=== PATIENT | male | born 1970 | race Caucasian/White ===

== ENCOUNTER 2021-06-20 20:57 | Inpatient (IN) | payer MEDICAID ==
[~2021-06-20] VITALS: Ht 175.3 cm; Wt 118.8 kg
--- NOTE | 2021-06-20 21:00 | NUR ---
ARTURO [address] C/O R SIDED WEAKNESS. LKWT 2015. PT A/OX4. TOLERATING R/A WELL WITH NO SOB. POST ANESTHESIA ROOM NURSE R HAND #20G S/L.
--- NOTE | 2021-06-20 21:04 | NUR ---
RENEE RAMSEY 138; DR. OCASIO AWARE
--- NOTE | 2021-06-20 21:05 | NUR ---
CODE STOKE ACTIVATED
--- NOTE | 2021-06-20 21:07 | NUR ---
TELEMED REQUEST SENT.
--- NOTE | 2021-06-20 21:09 | NUR ---
PT TAKEN TO CT VIA LACHELLE
[2021-06-20] MEDS ORDERED: IV NS 0.9% 250 ML IV ONE (21:13)
[2021-06-20] MEDS ORDERED: IOHEXOL-350 100 ML VIAL IV ONE (21:13)
--- NOTE | 2021-06-20 21:30 | NUR ---
IV CANNULA G18 INSERTED ON LEFT FOREARM. BLOOD DRAWN AND GIVEN TO REJECTOR.
[2021-06-20 21:33] LABS: BASOPHILS % (AUTO) 0.4 % (0.0-2.0); EOSINOPHILS % (AUTO) 2.3 % (0.0-6.0); HEMATOCRIT 37 % (39-51); HEMOGLOBIN 12.4 g/dL (13.5-17.5); LYMPHOCYTES # (AUTO) 0.8 K/uL (0.8-4.8); LYMPHOCYTES % (AUTO) 7.3 % (20.0-44.0); MEAN CORPUSCULAR HGB CONC 34 g/dl (31.0-36.0); MEAN CORPUSCULAR VOLUME 90 fL (80-96); MONOCYTES # (AUTO) 0.9 K/uL (0.1-1.30); MONOCYTES % (AUTO) 8.5 % (2.0-12.0); NEUTROPHILS # (AUTO) 8.9 K/uL (1.8-8.9); NEUTROPHILS % (AUTO) 81.5 % (43.0-81.0); PLATELET COUNT (AUTO) 168 K/uL (150-450); RED BLOOD CELL COUNT(AUTO) 4.08 MIL/uL (4.5-6.0); WHITE BLOOD COUNT (AUTO) 10.9 K/uL (4.3-11.0)
--- NOTE | 2021-06-20 21:35 | NUR ---
CT SCAN AND CXR DONE AT RADIOLOGY ROOM
[2021-06-20 21:38] LABS: CALCIUM, SERUM 7.5 mg/dL (8.5-10.1); CARBON DIOXIDE 21 mmol/L (21-32); CHLORIDE 109 mmol/L (98-107); CREATININE 0.9 mg/dL (0.6-1.3); GLUCOSE 120 mg/dL (74-106); POTASSIUM 3.3 mmol/L (3.5-5.1); SODIUM SERUM 138 mmol/L (136-145); UREA NITROGEN, BLOOD 13 mg/dL (7-18)
--- NOTE | 2021-06-20 21:40 | NUR ---
EKG DONE AT BEDSIDE.
--- NOTE | 2021-06-20 21:40 | NUR ---
COVID SWAB DONE AND GIVEN TO SPRAY GUN OPERATOR
--- NOTE | 2021-06-20 21:43 | NUR ---
TELEVIDEO DONE WITH NEUROLOGIST.
--- NOTE | 2021-06-20 21:45 | NUR ---
NEUROLOGIST DR SAAVEDRA INSTRUCTED NO TO TPA
--- NOTE | 2021-06-20 21:54 | NUR ---
MOVE SHEET SUBMITTED.
[2021-06-20] MEDS ORDERED: CEFEPIME 1 GM in IV D5W 50 ML IV ONE (22:00)
[2021-06-20] MEDS ORDERED: CEFEPIME 1 GM VIAL ONE (22:15)
--- NOTE | 2021-06-20 22:25 | NUR ---
IV ANTIBIOTIC STARTED
--- NOTE | 2021-06-20 22:49 | NUR ---
ASSIGNED TO 314-2
--- NOTE | 2021-06-20 22:58 | NUR ---
REPORT GIVEN TO MAL KING
--- NOTE | 2021-06-20 23:23 | NUR ---
PATIENT TRANSFERRED UNDER ACLS
--- NOTE | 2021-06-20 23:30 | NUR ---
TELE/PROTECTIVE SIGNAL REPAIRER NOTE 8650 RECEIVED PT FROM [facility]. VIA GURNEY TO [id number] ACCOMPANIED BY RN/STAFF. A/OX4. NO SOB. PT REPORTS HE GOT BITTEN BY A "BUG" YESTERDAY WHILE AT THE [employer]; TODAY CAME IN TO [facility]. D/T L-SIDED WEAKNESS. PT WITH LLE CELLULITIS. PT NOTED EASY TO ANGER AND ARGUMENTATIVE TOWARDS NURSES. SPOKE CALMLY TO PT, INFORMED OF ADMISSION PROCESS, HEALTH TEACHINGS, MEDS, ORDERS. PT REDIRECTED AND VERBALIZED UNDERSTANDING. PT C/O STOMACH UPSET AND NAUSEA. MEDS REQUESTED TO VARGAS MCLAIN, DR.SAM Stanton AWAITING ORDERS. IV SITE: L-FA #18G INTACT/PATENT/FLUSHES WELL. CONNECTED TO TELE MONITOR, READING SR, HR 91. MADE COMFORTABLE IN BED. SAFETY MEASURES IN PLACE, BED IN LOWEST LOCKED POSITION, S/R UPX2, CALL LIGHT WITHIN REACH. WILL CONT TO MONITOR.
[2021-06-20] MEDS ORDERED: VANCOMYCIN 1 GM in IV D5W 250ml IV ONE (23:45)
[2021-06-20 23:59] LABS: BASOPHILS # (AUTO) 0.1 K/uL (0.0-0.2); BASOPHILS % (AUTO) 0.6 % (0.0-2.0); EOSINOPHILS % (AUTO) 2.5 % (0.0-6.0); HEMATOCRIT 37 % (39-51); HEMOGLOBIN 12.5 g/dL (13.5-17.5); LYMPHOCYTES # (AUTO) 1.4 K/uL (0.8-4.8); LYMPHOCYTES % (AUTO) 12.6 % (20.0-44.0); MEAN CORPUSCULAR HGB CONC 34 g/dl (31.0-36.0); MEAN CORPUSCULAR VOLUME 89 fL (80-96); MONOCYTES # (AUTO) 0.8 K/uL (0.1-1.30); MONOCYTES % (AUTO) 7.7 % (2.0-12.0); NEUTROPHILS # (AUTO) 8.5 K/uL (1.8-8.9); NEUTROPHILS % (AUTO) 76.6 % (43.0-81.0); PLATELET COUNT (AUTO) 184 K/uL (150-450); RED BLOOD CELL COUNT(AUTO) 4.11 MIL/uL (4.5-6.0); WHITE BLOOD COUNT (AUTO) 11.1 K/uL (4.3-11.0)
[2021-06-21] MEDS ORDERED: VANCOMYCIN 1 GM VIAL ONE
[2021-06-21] MEDS ORDERED: ONDANSETRON HCL/PF 4 MG/2 ML VIAL IV PRN
--- NOTE | 2021-06-21 00:05 | NUR ---
RN NOTE RECEIVED ORDERS FOR ZOFRAN AND MAALOX PRN. NURSING SWALLOW SCREEN DONE AND PASSED BEFORE ADMINISTERING PO MEDS.
[2021-06-21] MEDS: ASPIRIN 81 MG TAB.CHEW PO SCH ×2 (00:11→09:04)
[2021-06-21 00:14] LABS: CALCIUM, SERUM 7.4 mg/dL (8.5-10.1); CREATININE 0.8 mg/dL (0.6-1.3)
[2021-06-21 00:26] LABS: ALBUMIN 2.8 g/dL (3.4-5.0); BILIRUBIN,TOTAL 0.4 mg/dL (0.2-1.0); TOTAL PROTEIN, SERUM 6.1 g/dL (6.4-8.2)
[2021-06-21 00:27] LABS: THYROID STIMULATING HORMONE 0.201 uIU/mL (0.358-3.74)
[2021-06-21] MEDS: MAG HYDROX/AL HYDROX/SIMETH 30 ML UDC PO PRN ×2 (00:33→10:29)
--- NOTE | 2021-06-21 01:00 | NUR ---
RN NOTE PT REPORTS RELIEF FROM NAUSEA AND STOMACH UPSET. PT REQUESTING SNACKS AND GIVEN PUDDING, MILK AND SANDWICH PER PT'S REQUEST.
[2021-06-21] MEDS: ACETAMINOPHEN 325 MG TABLET PO PRN ×2 (01:06→21:45)
[2021-06-21 01:49] VITALS: BP 134/70
[2021-06-21] MEDS ORDERED: DEXTROSE 50%-WATER 50 ML DISP.SYRIN IV PRN (02:00)
[2021-06-21] MEDS: BLOOD SUGAR DIAGNOSTIC 1 EACH STRIP IN SCH ×4 (06:16→21:29)
[2021-06-21 07:13] LABS: BASOPHILS % (AUTO) 0.4 % (0.0-2.0); EOSINOPHILS % (AUTO) 4.2 % (0.0-6.0); HEMATOCRIT 36 % (39-51); HEMOGLOBIN 12.2 g/dL (13.5-17.5); LYMPHOCYTES # (AUTO) 1.5 K/uL (0.8-4.8); MEAN CORPUSCULAR HGB CONC 34 g/dl (31.0-36.0); MEAN CORPUSCULAR VOLUME 90 fL (80-96); MONOCYTES # (AUTO) 0.7 K/uL (0.1-1.30); MONOCYTES % (AUTO) 8.9 % (2.0-12.0); NEUTROPHILS # (AUTO) 5.6 K/uL (1.8-8.9); NEUTROPHILS % (AUTO) 68.5 % (43.0-81.0); PLATELET COUNT (AUTO) 163 K/uL (150-450); RED BLOOD CELL COUNT(AUTO) 3.99 MIL/uL (4.5-6.0); WHITE BLOOD COUNT (AUTO) 8.1 K/uL (4.3-11.0)
[2021-06-21 07:22] LABS: CALCIUM, SERUM 7.8 mg/dL (8.5-10.1); CREATININE 0.8 mg/dL (0.6-1.3); POTASSIUM 3.2 mmol/L (3.5-5.1)
[2021-06-21] MEDS ORDERED: BLOOD SUGAR DIAGNOSTIC 1 EACH STRIP IN SCH (07:30)
--- NOTE | 2021-06-21 07:30 | NUR ---
BUS PERSON NOTES PT IN BED, AWAKE, ALERT AND ORIENTED, NO COMPLAINT OF PAIN AT THIS TIME, RESPIRATIONS NORMAL, CALL LIGHT WITHIN REACH, WITH REDNESS AND SWELLING TO LEFT LOWER LEG, NO DISCHARGE NOTED, NEEDS ATTENDED.
[2021-06-21] MEDS ORDERED: LISI10TA29 PO (07:45)
[2021-06-21] MEDS ORDERED: GABA600T12 PO (07:45)
[2021-06-21] MEDS ORDERED: AMLO-212 PO (07:45)
[2021-06-21] MEDS ORDERED: LEVE500T9 PO (07:45)
[2021-06-21 08:09] VITALS: BP 104/72
[2021-06-21] MEDS: VANCOMYCIN 1 GM in IV D5W 250ml IV SCH ×3 (09:05→23:39)
[2021-06-21] MEDS: PANTOPRAZOLE 40 MG TABLET.DR PO SCH (09:05)
[2021-06-21] MEDS ORDERED: POTASSIUM CHLORIDE 20 MEQ TAB.PRT.SR PO SCH (10:00)
[2021-06-21] MEDS: INSULIN REGULAR, HUMAN 100 UNIT/ML 3 ML VIAL SQ PRN ×2 (12:59→13:12)
--- NOTE | 2021-06-21 14:15 | NUR ---
SS Note: SS Consult requested for code Stroke. SW met with pt. at bedside. The pt. is alert & oriented x 4 and very drowsy. Pt. couldn't provide address or discuss discharge plan. Pt. stated "it was hard for him to think right now" and asked SW to return at a later time. SW will follow up.
[2021-06-21 15:34] VITALS: BP 119/72
[2021-06-21] MEDS: HYDROCODONE/APAP 10/325MG TABLET PO PRN (17:38)
--- NOTE | 2021-06-21 18:51 | NUR ---
RN MS NOTES PT IN BED, RESTING, PAIN MEDS GIVEN FOR LEFT LEG PAIN, ASSISTED TO BATHROOM VIA WHEELCHAIR NEEDED, SEEN BY DR. MARSH AND DR. SCHERER TODAY, PLAN OF CARE DISCUSSED WITH PT, VERBALIZED UNDERSTANDING, IV ATB GIVEN ORDERED, KEPT SORTER PRICER BED.
--- NOTE | 2021-06-21 19:44 | NUR ---
MS RN OPENING NOTES PATIENT IN RESTING IN BED COMFORTABLY; A/OX4, ABLE TO MAKE NEEDS KNOWN; BREATHING EVEN AND UNLABORED; NO SOB NOTED; PT DENIES PAIN; NO DISTRESS NOTED AT THIS TIME; TOLERATING ROOM AIR WELL; L SIDED WEAKNESS NOTED; PT HAS L FA #18G IV ACCESS NOTED; FLUSHING WELL; SAFETY PRECAUTIONS IMPLEMENTED, BED LOCKED IN LOW POSITION; SIDE RAILSX2; CALL LIGHT WITHIN REACH; WILL CONT TO MONITOR, WILL CONT PLAN OF CARE
[2021-06-21 19:55] VITALS: BP 131/56
--- NOTE | 2021-06-21 19:59 | NUR ---
MS RN NOTES ASSISTED PT TO RESTROOM, PT TOLERATED TRANSFERRING FROM BED TO WHEEL CHAIR; PT COMPLAINT OF GENERALIZED BODY PAINS BUT STILL MANAGEABLE; PT BACK IN BED AND COMFORTABLE, EATING SANDWICH AT THIS TIME; PT AGREED TO TAKE DUE MEDS AND WISHES TO SLEEP TONIGHT; IF PT SLEEPING, PER PT DO NOT BOTHER HE HAS NOT SLEPT WELL; WILL CONT TO MONITOR
[2021-06-21 20:00] VITALS: BP 131/56
[2021-06-21] MEDS: SIMVASTATIN 20 MG TABLET PO SCH (21:29)
--- NOTE | 2021-06-21 22:00 | NUR ---
MS RN NOTES PT ACCU CHECK 145; PATIENT DOES NOT WANT INSULIN COVERAGE BECAUSE HE IS NOT DIABETIC; PT INFORMED ON HOSPITAL PROTOCOL AND POSSIBLE REASONS TO WHY MD ORDERED ACCU CHECK AND INSULIN THROUGHOUT HOSPITALIZATION; PT STILL REFUSING, CHARGE AWARE
[2021-06-22] MEDS: HYDROCODONE/APAP 10/325MG TABLET PO PRN ×4 (01:10→21:23)
--- NOTE | 2021-06-22 04:30 | NUR ---
MS RN NOTES PT AWAKE, ASSISTED TO RESTROOM AND BACK IN BED COMFORTABLY; PT INFORMED OF MD ORDER FOR MRI OF BRAIN WITHOUT CONTRAST FOR FURTHER IMAGING TESTS D/T LEFT SIDED WEAKNESS; MRI QUESTIONNAIRE AND SURGICAL HX DISCUSSED WITH PT; PT SIGNED FORMS AND AGREED FOR MRI TO BE DONE IF MD ORDERED; DOCUMENTS IN PT BINDER
[2021-06-22] MEDS: BLOOD SUGAR DIAGNOSTIC 1 EACH STRIP IN SCH ×4 (06:34→21:40)
--- NOTE | 2021-06-22 06:43 | NUR ---
MS RN CLOSING NOTES PATIENT IN RESTING IN BED COMFORTABLY; A/OX4, VERBALIZED HE FEELS WELL RESTED; BREATHING EVEN AND UNLABORED; NO SOB NOTED; PT DENIES PAIN AT THIS TIME; NO DISTRESS NOTED AT THIS TIME; TOLERATING ROOM AIR WELL; SLIGHT L SIDED WEAKNESS STILL NOTED WITH MILD IMPROVEMENT; MRI OF BRAIN WITHOUT CONTRAST ORDERED PER MD; UNKNOWN TIME OF SCHEDULE; WILL INFORM DAY SHIFT, PT AWARE; PT HAS L FA #18G IV ACCESS NOTED; FLUSHING WELL; ALL NEEDS RENDERED; SAFETY PRECAUTIONS IMPLEMENTED, BED LOCKED IN LOW POSITION; SIDE RAILSX2; CALL LIGHT WITHIN REACH; WILL ENDORSE CONT OF CARE TO ONCOMING SHIFT
[2021-06-22 07:25] LABS: CALCIUM, SERUM 8.1 mg/dL (8.5-10.1); CREATININE 0.9 mg/dL (0.6-1.3); POTASSIUM 3.5 mmol/L (3.5-5.1)
--- NOTE | 2021-06-22 07:30 | NUR ---
RN MS NOTES PT IN BED, AWAKE, ALERT AND ORIENTED, NO COMPLAINT OF PAIN AT THIS TIME, RESPIRATIONS NORMAL, ABLE TO TRANSFER TO WHEELCHAIR TO THE BATHROOM, CALL LIGHT WITHIN REACH, NEEDS ATTENDED.
[2021-06-22 08:00] VITALS: BP 126/75
[2021-06-22] MEDS: PANTOPRAZOLE 40 MG TABLET.DR PO SCH (08:15)
[2021-06-22] MEDS: ASPIRIN 81 MG TAB.CHEW PO SCH (08:15)
[2021-06-22] MEDS: VANCOMYCIN 1 GM in IV D5W 250ml IV SCH ×3 (08:15→23:08)
[2021-06-22] MEDS ORDERED: LORAZEPAM 1 MG TABLET PO ONE (10:30)
--- NOTE | 2021-06-22 13:41 | NUR ---
SS Note: SW received consult for stroke. Pt. Is a 51-year-old male who demonstrates adequate insight to the reason for hospitalization. Per pt., he came in for a stroke and a bug bite. Pt. was oriented x3, alert, and cooperative. During interview, pt. was capable of following directions and appeared unkempt. Pt.s speech was at a normal rate and pt.s mood was elevated. Pt. reported no hx of mental health, substance abuse, suicidal ideation, or homicidal ideation. Pt. denies auditory hallucinations, visual hallucinations, paranoia, or delusions. SW explored pt.s living situation. Per pt., he lives alone [[address] [place] [id number]]. Pt. has no family out here, but states that his friends are supportive [[place] [phone]]. Pt. mentioned that he had a stroke last year [May of 2020], and this is his second time. He states that he feels weakness and numbness on his left side of the body. Pt. was dosing off during interview. Plan: SW provided available resources and pt. accepted. SW assess pt. with PHQ9 and pt. scored a 0. There is no need for a Psych consult. Upon discharge, per pt., he wants to return home. Resources Provided: Stroke Empowerment Packet.
[2021-06-22 16:00] VITALS: BP 120/76
--- NOTE | 2021-06-22 18:42 | NUR ---
RN MS NOTES PT IN BED, RESTING, PAIN MEDS GIVEN FOR PAIN MANAGEMENT, NOT IN DISTRESS, CALL LIGHT WITHIN REACH, PM MEDS GIVEN ORDERED, COMPLETED MRI, SEEN BY DR. SCHERER AND DR. MARSH TODAY, PLAN OF CARE DISCUSSED WITH PT, VERBALIZED UNDERSTANDING, ALL NEEDS ATTENDED.
--- NOTE | 2021-06-22 19:15 | NUR ---
MS RN OPENING NOTES RECEIVED PATIENT LAYING AWAKE IN BED. A/O X4. PATIENT WITH REGULAR AND UNLABORED BREATHING ON ROOM AIR, TOLERATED WELL. NO SIGNS AND SYMPTOMS OF DISTRESS NOTED AT THIS TIME. NO COMPLAINS OF PAIN OR DISCOMFORT AT THIS TIME. IV ACCESS LFA G #18 SL. IV ACCESS PATENT AND INTACT. SAFETY PRECAUTIONS ENFORCED WITH BED LOCKED AND AT LOWEST POSITION. CALL LIGHT WITHIN REACH AT ALL TIMES. WILL CONTINUE TO MONITOR PATIENT.
[2021-06-22 20:00] VITALS: BP 133/81
[2021-06-22] MEDS: SIMVASTATIN 20 MG TABLET PO SCH (21:23)
--- NOTE | 2021-06-22 21:24 | NUR ---
MS RN NOTES PATIENT COMPLAINED OF PAIN. ADMINISTERED NORCO ORDERED BY HOSPITALIST. WILL CONTINUE TO MONITOR PATIENT.
[2021-06-22] MEDS: INSULIN REGULAR, HUMAN 100 UNIT/ML 3 ML VIAL SQ PRN (21:41)
[2021-06-23] MEDS: HYDROCODONE/APAP 10/325MG TABLET PO PRN ×4 (03:34→23:22)
--- NOTE | 2021-06-23 03:35 | NUR ---
MS RN NOTES PATIENT COMPLAINED OF PAIN. ADMINISTERED NORCO ORDERED BY HOSPITALIST. WILL CONTINUE TO MONITOR PATIENT.
[2021-06-23 06:19] LABS: CALCIUM, SERUM 8.3 mg/dL (8.5-10.1); POTASSIUM 3.6 mmol/L (3.5-5.1)
[2021-06-23] MEDS: BLOOD SUGAR DIAGNOSTIC 1 EACH STRIP IN SCH ×4 (06:58→21:27)
--- NOTE | 2021-06-23 07:00 | NUR ---
MS RN OPENING NOTES PATIENT STILL LAYING AWAKE IN BED. A/O X4. PATIENT WITH REGULAR AND UNLABORED BREATHING ON ROOM AIR, TOLERATED WELL. NO SIGNS AND SYMPTOMS OF DISTRESS NOTED AT THIS TIME. NO COMPLAINS OF PAIN OR DISCOMFORT AT THIS TIME. IV ACCESS LFA G #18 SL. IV ACCESS PATENT AND INTACT. SAFETY PRECAUTIONS ENFORCED WITH BED LOCKED AND AT LOWEST POSITION. CALL LIGHT WITHIN REACH AT ALL TIMES. WILL ENDORSE CONTINUITY OF CARE TO DAY SHIFT NURSE. Addendum: 06/23/21 at 0704 by ANA DANGELO RN MS RN CLOSING NOTES
--- NOTE | 2021-06-23 07:30 | NUR ---
MS RN OPENING NOTES RECEIVED PATIENT LAYING AWAKE IN BED. A/O X4. PATIENT WITH REGULAR AND UNLABORED BREATHING ON ROOM AIR, TOLERATING WELL. NO S/SX OF DISTRESS NOTED AT THIS TIME. NO COMPLAINS OF PAIN OR DISCOMFORT AT THIS TIME. IV ACCESS LFA G #18 SL. IV ACCESS PATENT AND INTACT. SAFETY PRECAUTIONS ENFORCED WITH BED LOCKED AND AT LOWEST POSITION. CALL LIGHT WITHIN REACH AT ALL TIMES. WILL CONTINUE TO MONITOR PATIENT.
[2021-06-23] MEDS: PANTOPRAZOLE 40 MG TABLET.DR PO SCH (08:24)
[2021-06-23] MEDS: ASPIRIN 81 MG TAB.CHEW PO SCH (08:24)
[2021-06-23] MEDS: VANCOMYCIN 1 GM in IV D5W 250ml IV SCH ×3 (08:27→23:21)
[2021-06-23] MEDS ORDERED: MORPHINE SULFATE INJ 4 MG/ML DISP.SYRIN IV STA (10:17)
[2021-06-23] MEDS ORDERED: MORPHINE SULFATE INJ 4 MG/ML DISP.SYRIN IV PRN (10:30)
[2021-06-23] MEDS ORDERED: LIDOCAINE 1%-EPI 1:100,000 20 ML VIAL TP ONE (10:30)
[2021-06-23] MEDS: MORPHINE SULFATE INJ 4 MG/ML DISP.SYRIN IV PRN ×3 (14:16→21:46)
--- NOTE | 2021-06-23 18:58 | NUR ---
MS RN CLOSING NOTES PT IS AWAKE IN BED. A/O X4. PATIENT WITH REGULAR AND UNLABORED BREATHING ON ROOM AIR, TOLERATING WELL. NO S/SX OF DISTRESS NOTED AT THIS TIME. NO COMPLAINTS OF PAIN OR DISCOMFORT AT THIS TIME. IV ACCESS RHAND#20 PATENT AND INTACT. SAFETY PRECAUTIONS ENFORCED WITH BED LOCKED AND AT LOWEST POSITION. CALL LIGHT WITHIN REACH AT ALL TIMES. WILL ENDORSE CONTINUITY OF CARE TO ONCOMING SHIFT.
--- NOTE | 2021-06-23 19:30 | NUR ---
MS RN OPENING NOTES RECEIVED PATIENT LYING IN BED AWAKE. A/O X4. NO SOB OR NOTED. TOLERATING ROOM AIR WELL. C/O PAIN /, RECEIVED PRN MORPHINE S04 AN HOUR AGO. S/P LEFT LEG I&D. SWELLING AND REDNESS NOTED. WOUND DRESSING CLEAN AND INTACT. HAS RIGHT WRIST IV ACCESS #20G AND SALINE LOCKED. NO S/S OF INFILTRATION NOTED. SAFETY PRECAUTIONS IN PLACE. WILL CONTINUE PLAN OF CARE.
[2021-06-23 19:51] VITALS: BP 125/72
[2021-06-23] MEDS: ACETAMINOPHEN 325 MG TABLET PO PRN (19:51)
--- NOTE | 2021-06-23 19:58 | NUR ---
MS RESENDEZ NOTES MILD FEVER OF 99.7. TYLENOL ADMINISTERED, TOLERATED WELL. Addendum: 06/23/21 at 2134 by August CHASITY RESENDEZ PATIENT REFUSED TEMP RE-CHECK. VERBALIZED HE JUST DRANK COLD WATER. Addendum: 06/23/21 at 2155 by August CHASITY RESENDEZ TEMP RE-CHECKED 98.6
[2021-06-23 20:00] VITALS: BP 125/72
[2021-06-23] MEDS: SIMVASTATIN 20 MG TABLET PO SCH (21:23)
[2021-06-23] MEDS: INSULIN REGULAR, HUMAN 100 UNIT/ML 3 ML VIAL SQ PRN (21:30)
--- NOTE | 2021-06-23 21:30 | NUR ---
MS RN NOTES PATIENT REFUSED 2 UNITS OF INSULIN. VERBALIZED HE WANTS SOMEONE TO SIT WITH HIM, EXPLAIN HOW IT WORKS AND DO MORE TESTS. PATIENT EDUCATION GIVEN BUT STILL REFUSED. HE SAID HE KNOWS HOW INSULIN WORKS.
--- NOTE | 2021-06-23 21:46 | NUR ---
MS RN NOTES C/O PAIN 9/10 ON HIS LEFT LEG. LAST DOSE OF MORPHINE SO4 ADMINISTERED. TOLERATED WELL.
--- NOTE | 2021-06-23 23:22 | NUR ---
MS RN NOTES PATIENT C/O PAIN 7/10 ON HIS LEFT LOWER LEG. A/O X4. NO SOB OR NOTED. PRN NORCO 10-325 GIVEN. TOLERATED WELL.
--- NOTE | 2021-06-23 23:45 | NUR ---
MS RN NOTES PATIENT PASSED THE SWALLOW TEST. NOTIFIED W/ NNO.
[2021-06-24] MEDS: HYDROCODONE/APAP 10/325MG TABLET PO PRN ×4 (05:28→22:37)
--- NOTE | 2021-06-24 05:30 | NUR ---
MS RN NOTES PATIENT C/O PAIN 7/10 ON HIS LEFT LEG. PRN NORCO 10-325 ADMINISTERED. NO AR NOTED.
[2021-06-24 06:23] LABS: CALCIUM, SERUM 8.5 mg/dL (8.5-10.1); CREATININE 0.8 mg/dL (0.6-1.3); POTASSIUM 4.1 mmol/L (3.5-5.1)
[2021-06-24 06:25] LABS: BASOPHILS # (AUTO) 0.1 K/uL (0.0-0.2); BASOPHILS % (AUTO) 0.9 % (0.0-2.0); EOSINOPHILS % (AUTO) 11.1 % (0.0-6.0); HEMATOCRIT 40 % (39-51); HEMOGLOBIN 13.6 g/dL (13.5-17.5); LYMPHOCYTES # (AUTO) 1.2 K/uL (0.8-4.8); MEAN CORPUSCULAR HGB CONC 34 g/dl (31.0-36.0); MEAN CORPUSCULAR VOLUME 89 fL (80-96); MONOCYTES # (AUTO) 0.7 K/uL (0.1-1.30); PLATELET COUNT (AUTO) 269 K/uL (150-450); RED BLOOD CELL COUNT(AUTO) 4.47 MIL/uL (4.5-6.0); WHITE BLOOD COUNT (AUTO) 5.6 K/uL (4.3-11.0)
[2021-06-24] MEDS: BLOOD SUGAR DIAGNOSTIC 1 EACH STRIP IN SCH ×4 (06:30→22:32)
--- NOTE | 2021-06-24 06:32 | NUR ---
MS RN CLOSING NOTES PATIENT LYING IN BED WITH EYES CLOSED. SLEEPING INTERMITTENTLY THROUGHOUT THE NIGHT. A/O X4. NO APPARENT DISTRESS NOTED. STABLE ON ROOM AIR. PASSED THE SWALLOW TEST. C/O PAIN /. PRN PAIN MEDS GIVEN. LEFT LEG WOUND DRESSING CLEAN AND INTACT. SWELLING AND REDNESS NOTED. HAS RIGHT WRIST IV ACCESS #20G AND SALINE LOCKED. INTACT, PATENT AND FLUSHING. ALL NEEDS ATTENDED. KEPT DRY AND COMFORTABLE. BLOOD SUGAR 101, NO INSULIN COVERAGE. PATIENT HAS BEEN DRINKING JUICE DUE TO HIS CRACKED LIPS. SAFETY PRECAUTIONS IN PLACE: BED LOW AND LOCKED, SIDE RAILS UP X2, CALL LIGHT WITHIN REACH.
--- NOTE | 2021-06-24 07:00 | NUR ---
MS RN OPENING NOTES PATIENT IN BED A/O X 4, ABLE TO MAKE NEEDS KNOWN. TOLERATING WELL ON ROOM AIR WITH NO S/S OF RESPIRATORY DISTRESS NOTED. NO COMPLAINTS OF PAIN OR DISCOMFORT AT THIS TIME. LEFT LEG WOUND DRESSING CLEAN AND INTACT. SWELLING AND REDNESS NOTED. HAS RIGHT WRIST IV ACCESS #20G AND SALINE LOCKED. INTACT, PATENT AND FLUSHING. SAFETY PRECAUTIONS IN PLACE: BED LOW AND LOCKED, SIDE RAILS UP X2, CALL LIGHT WITHIN REACH. WILL CONTINUE TO MONITOR.
[2021-06-24] MEDS: VANCOMYCIN 1 GM in IV D5W 250ml IV SCH ×2 (07:58→16:43)
[2021-06-24] MEDS: PANTOPRAZOLE 40 MG TABLET.DR PO SCH (07:58)
[2021-06-24 08:08] VITALS: BP 119/69
--- NOTE | 2021-06-24 08:41 | NUR ---
MS RN NOTES PATIENT NOTED WITH NO SCHEDULED VANCOMYCIN TROUGH LAB. SPOKE WITH PHARMACY WHO STATED OK TO ADMINISTER IV VANCO THIS AM PRIOR TO OBTAINING VANCO TROUGH.
[2021-06-24] MEDS: ASPIRIN 81 MG TAB.CHEW PO SCH (09:04)
--- NOTE | 2021-06-24 09:40 | NUR ---
MS RN NOTES PATIENT COMPLAINT OF 8/10 LEFT LEG PAIN AND REQUESTING PAIN MEDICATION. PRN NORCO 10/325 MG PO ADMINISTERED ORDERED. WILL CONTINUE TO MONITOR FOR S/S OF PAIN.
[2021-06-24] MEDS ORDERED: MORPHINE SULFATE INJ 2 MG/ML DISP.SYRIN IV STA (12:50)
--- NOTE | 2021-06-24 12:57 | NUR ---
MS RN NOTES PATIENT COMPLAINT OF 8/10 LEFT LEG PAIN PRIOR TO LEG WOUND EVALUATION BY MD. ONE TIME STAT DOSE OF 4 MG MORPHINE IVP ADMINISTERED ORDERED. WILL CONTINUE TO MONITOR FOR S/S OF PAIN.
[2021-06-24] MEDS: INSULIN REGULAR, HUMAN 100 UNIT/ML 3 ML VIAL SQ PRN ×3 (13:59→22:32)
[2021-06-24 16:31] VITALS: BP 131/79
--- NOTE | 2021-06-24 19:00 | NUR ---
MS RN CLOSING NOTES PATIENT IN BED A/O X 4, ABLE TO MAKE NEEDS KNOWN. TOLERATING WELL ON ROOM AIR WITH NO S/S OF RESPIRATORY DISTRESS NOTED. NO COMPLAINTS OF PAIN OR DISCOMFORT AT THIS TIME. LEFT LEG WOUND DRESSING CLEAN AND INTACT. SWELLING AND REDNESS NOTED. HAS RIGHT WRIST IV ACCESS #20G AND SALINE LOCKED. INTACT, PATENT AND FLUSHING. SAFETY PRECAUTIONS IN PLACE: BED LOW AND LOCKED, SIDE RAILS UP X2, CALL LIGHT WITHIN REACH. WILL ENDORSE TO DOUGHNUT DOUGH MIXER FOR CESARIO.
--- NOTE | 2021-06-24 19:30 | NUR ---
MS RN OPENING NOTE RECEIVED PATIENT IN SITTING. A/OX4. NO S/S OF APPARENT DISTRESS IN ROOM AIR, WHEEL CHAIR AT BED SIDE WHICH PATIENT USES. PAIN TOLERABLE AT THIS TIME. NO FLUIDS RUNNING AT THIS TIME. SAFETY IN PLACE. WILL CONTINUE WITH PATIENT'S PLAN OF CARE. NEEDS ATTENDED FOR NOW AND ENCOURAGED WITH THE USE OF CALL LIGHT.
[2021-06-24 20:17] VITALS: BP 131/71
[2021-06-24] MEDS: SIMVASTATIN 20 MG TABLET PO SCH (22:29)
--- NOTE | 2021-06-24 22:37 | NUR ---
MS RN NOTE PATIENT REFUSED INSULIN COVERAGE. BLOOD SUGAR 136. TO QUOTE "I'VE NEVER TAKEN INSULIN, I DON'T KNOW WHAT THAT IS, AND IF THE DOCTOR WON'T TELL ME WHAT THIS IS ABOUT I DON'T WANT IT". RISK AND BENEFITS HAVE BEEN EXPLAINED TO PATIENT. PATIENT ACKNOWLEDGED. INSULIN NON-ADMINISTERED.
[2021-06-25] MEDS: VANCOMYCIN 1 GM in IV D5W 250ml IV SCH ×3 (00:15→20:36)
[2021-06-25] MEDS: ACETAMINOPHEN 325 MG TABLET PO PRN (03:05)
--- NOTE | 2021-06-25 03:10 | NUR ---
MS RN NOTE PATIENT REQUEST FOR TYLENOL FOR CONTINUOUS PAIN 05/12 EVEN WITH NORCO 5 --GIVEN 4 HOURS AGO, Q6. GIVEN TYLENOL PRN.
[2021-06-25] MEDS: HYDROCODONE/APAP 10/325MG TABLET PO PRN ×3 (04:52→17:13)
[2021-06-25] MEDS: BLOOD SUGAR DIAGNOSTIC 1 EACH STRIP IN SCH ×4 (06:36→22:22)
[2021-06-25] MEDS: INSULIN REGULAR, HUMAN 100 UNIT/ML 3 ML VIAL SQ PRN ×2 (06:37→12:36)
--- NOTE | 2021-06-25 06:37 | NUR ---
MS RN NOTE BLOOD SUGAR 110 FOR THIS AM. NO COVERAGE NEEDED.
--- NOTE | 2021-06-25 06:38 | NUR ---
MS RN NOTE ASKED PATIENT TO DO HIS WOUND TREATMENT AND DRESSING CHANGE. PER PATIENT "IT'S TOO EARLY FOR ME" ADDING THAT SOMEONE DID HIS WOUND TX AT 1 PM YESTERDAY.
[2021-06-25 07:27] LABS: BASOPHILS # (AUTO) 0.1 K/uL (0.0-0.2); BASOPHILS % (AUTO) 0.9 % (0.0-2.0); EOSINOPHILS % (AUTO) 12.4 % (0.0-6.0); HEMATOCRIT 41 % (39-51); HEMOGLOBIN 13.8 g/dL (13.5-17.5); LYMPHOCYTES # (AUTO) 1.3 K/uL (0.8-4.8); LYMPHOCYTES % (AUTO) 25.2 % (20.0-44.0); MEAN CORPUSCULAR HGB CONC 34 g/dl (31.0-36.0); MEAN CORPUSCULAR VOLUME 89 fL (80-96); MONOCYTES # (AUTO) 0.6 K/uL (0.1-1.30); MONOCYTES % (AUTO) 11.5 % (2.0-12.0); NEUTROPHILS # (AUTO) 2.7 K/uL (1.8-8.9); PLATELET COUNT (AUTO) 302 K/uL (150-450); RED BLOOD CELL COUNT(AUTO) 4.58 MIL/uL (4.5-6.0); WHITE BLOOD COUNT (AUTO) 5.3 K/uL (4.3-11.0)
[2021-06-25 08:00] VITALS: BP 111/71
[2021-06-25 08:54] LABS: CALCIUM, SERUM 8.9 mg/dL (8.5-10.1); CREATININE 0.9 mg/dL (0.6-1.3); MAGNESIUM 2.3 mg/dL (1.8-2.4); PHOSPHORUS 3.6 mg/dL (2.5-4.9); POTASSIUM 4.5 mmol/L (3.5-5.1)
[2021-06-25] MEDS: ASPIRIN 81 MG TAB.CHEW PO SCH (09:44)
[2021-06-25] MEDS: PANTOPRAZOLE 40 MG TABLET.DR PO SCH (09:44)
[2021-06-25 16:00] VITALS: BP 152/71
--- NOTE | 2021-06-25 18:00 | NUR ---
received pt. in am vs stable.no complaints initially.but then medicated x2 with norco 10.requested stronger pain med from md,then states inadvertently pulled out iv.vanco still not given as well as new pain med toradol.vs stable.up to bathrm.several times.refused leg packing due to injectable med not being given.
--- NOTE | 2021-06-25 19:15 | NUR ---
MS RN OPENING NOTES RECEIVED PATIENT ON BED; AWAKE, ALERT ORIENTED X4. BREATHING IS EVEN AND NONLABORED. NO SOB NOTED. NO SIGNS AND SYMPTOMS OF ANY ACUTE DISTRESS NOTED. DENIES ANY PAIN OF THIS TIME. SAFETY PRECAUTIONS IMPLEMENTED: CALL CUBA AND TABLE WITHIN EASY REACH, SIDE RAILS UP X2, BED IN LOWEST LOCKED POSITION. WILL CONTINUE TO MONITOR.
--- NOTE | 2021-06-25 19:30 | NUR ---
MS RN NOTES IV INSERTION DONE BY NURSE RAHEL AT LEFT HAND G#22: SITE IS PATENT AND INTACT.
[2021-06-25 20:00] VITALS: BP_SYST 101; BP_SYST 121; BP_DIAS 64
[2021-06-25] MEDS: KETOROLAC TROMETHAMINE INJ 30 MG/ML VIAL IV PRN (20:32)
--- NOTE | 2021-06-25 20:35 | NUR ---
MS RN NOTES COMPLAINED OF LEFT LEG PAIN WITH SCALE 0F 8/10; PRN TORADOL 30 MG 1 ML GIVEN IVTT ORDERED. WILL CONTINUE TO MONITOR
[2021-06-25] MEDS: SIMVASTATIN 20 MG TABLET PO SCH (22:13)
--- NOTE | 2021-06-25 22:35 | NUR ---
MS RN NOTES IV SITE ON LEFT HAND INFILTRATED. IV DISCONTINUED; CATHETER TIP INTACT. PLACED ICE PACK ON THE SITE; LEFT UPPER ARM ELEVATED.
--- NOTE | 2021-06-25 23:15 | NUR ---
MS RN NOTES MULTIPLE PIV LINE REINSERTION ATTEMPTS DONE; WITH NO SUCCESS.
--- NOTE | 2021-06-25 23:35 | NUR ---
MS RN NOTES OBTAINED ORDER FOR MIDLINE.
--- NOTE | 2021-06-26 02:40 | NUR ---
MS RN NOTES MIDLINE INSERTED AT RIGHT UPPER ARM; G#18.
[2021-06-26] MEDS: VANCOMYCIN 1 GM in IV D5W 250ml IV SCH ×4 (03:57→23:49)
[2021-06-26] MEDS: KETOROLAC TROMETHAMINE INJ 30 MG/ML VIAL IV PRN ×2 (05:04→11:36)
--- NOTE | 2021-06-26 05:13 | NUR ---
MS RN NOTES COMPLAINED OF LEFT LEG PAIN WITH SCALE OF 7/10, PRN KETOROLAC 1ML GIVEN IVTT ORDERED. WILL CONTINUE TO MONITOR
[2021-06-26] MEDS: BLOOD SUGAR DIAGNOSTIC 1 EACH STRIP IN SCH ×4 (06:26→21:52)
[2021-06-26] MEDS: HYDROCODONE/APAP 10/325MG TABLET PO PRN ×4 (06:45→19:47)
[2021-06-26 07:13] LABS: BASOPHILS # (AUTO) 0.1 K/uL (0.0-0.2); BASOPHILS % (AUTO) 1.2 % (0.0-2.0); EOSINOPHILS % (AUTO) 12.3 % (0.0-6.0); HEMATOCRIT 43 % (39-51); HEMOGLOBIN 14.2 g/dL (13.5-17.5); LYMPHOCYTES # (AUTO) 1.7 K/uL (0.8-4.8); LYMPHOCYTES % (AUTO) 31.4 % (20.0-44.0); MEAN CORPUSCULAR HGB CONC 33 g/dl (31.0-36.0); MEAN CORPUSCULAR VOLUME 89 fL (80-96); MONOCYTES # (AUTO) 0.6 K/uL (0.1-1.30); MONOCYTES % (AUTO) 11.7 % (2.0-12.0); NEUTROPHILS # (AUTO) 2.3 K/uL (1.8-8.9); NEUTROPHILS % (AUTO) 43.4 % (43.0-81.0); PLATELET COUNT (AUTO) 330 K/uL (150-450); RED BLOOD CELL COUNT(AUTO) 4.77 MIL/uL (4.5-6.0); WHITE BLOOD COUNT (AUTO) 5.4 K/uL (4.3-11.0)
--- NOTE | 2021-06-26 07:26 | NUR ---
MS RN CLOSING NOTES PATIENT ON BED; AWAKE, ALERT ORIENTED X4. BREATHING EVENLY AND UNLABORED. NO SOB NOTED. NO SIGNS AND SYMPTOMS OF ANY ACUTE DISTRESS NOTED. SAFETY PRECAUTIONS IN PLACED. ENDORSED TO MORNING NURSE FOR CONTINUITY OF CARE.
[2021-06-26 07:33] LABS: CALCIUM, SERUM 8.6 mg/dL (8.5-10.1); CREATININE 0.9 mg/dL (0.6-1.3); MAGNESIUM 2.2 mg/dL (1.8-2.4); PHOSPHORUS 3.6 mg/dL (2.5-4.9); POTASSIUM 4.4 mmol/L (3.5-5.1)
[2021-06-26 08:00] VITALS: BP 129/63
[2021-06-26] MEDS: ASPIRIN 81 MG TAB.CHEW PO SCH (10:29)
[2021-06-26] MEDS: PANTOPRAZOLE 40 MG TABLET.DR PO SCH (10:29)
[2021-06-26] MEDS ORDERED: PANT40TA49 PO (15:23)
[2021-06-26] MEDS ORDERED: ASPI-1169 PO (15:23)
[2021-06-26] MEDS ORDERED: SIMV-46 PO (15:23)
[2021-06-26] MEDS ORDERED: SULF1TAB48 PO (15:23)
[2021-06-26] MEDS ORDERED: KETOROLAC TROMETHAMINE INJ 30 MG/ML VIAL IV PRN (16:30)
--- NOTE | 2021-06-26 19:15 | NUR ---
MS RN NOTES PT AWAKE IN BED, WATCHING TV. A/OX4. RESPIRATIONS EVEN/UNLABORED. DENIES PAIN AT THIS TIME. IV SITE: MATT MIDLINE INTACT/PATENT/FLUSHES WELL. L-LOWER LEG WITH DRESSING IN PLACE, C/D/I. PT IN NO ACUTE DISTRESS. SAFETY MEASURES IN PLACE. WILL CONT TO MONITOR.
[2021-06-26 20:00] VITALS: BP 134/73
[2021-06-26] MEDS: SIMVASTATIN 20 MG TABLET PO SCH (21:52)
[2021-06-27] MEDS: BLOOD SUGAR DIAGNOSTIC 1 EACH STRIP IN SCH ×2 (06:10→12:21)
--- NOTE | 2021-06-27 06:50 | NUR ---
MS RN NOTES PT RESTING IN BED, EASILY AROUSABLE TO STIMULI. NO C/O PAIN AT THIS TIME. PT SLEPT WELL DURING THE NIGHT. LLE WITH DRESSING C/D/I. PT IN NO ACUTE DISTRESS. SAFETY MEASURES MAINTAINED.
--- NOTE | 2021-06-27 07:30 | NUR ---
MS RN OPENING NOTES RECEIVED PATIENT LAYING IN BED, ASLEEP. A/O X4. PATIENT WITH REGULAR AND UNLABORED BREATHING ON ROOM AIR, TOLERATING WELL. NO S/SX OF DISTRESS NOTED AT THIS TIME. NO COMPLAINTS OF PAIN OR DISCOMFORT AT THIS TIME. IV ACCESS MATT MIDLINE#18 SL PATENT AND INTACT. SAFETY PRECAUTIONS ENFORCED WITH BED LOCKED AND AT LOWEST POSITION. CALL LIGHT WITHIN REACH AT ALL TIMES. WILL CONTINUE TO MONITOR PATIENT.
[2021-06-27 07:53] LABS: CREATININE 0.9 mg/dL (0.6-1.3); MAGNESIUM 2.2 mg/dL (1.8-2.4); PHOSPHORUS 3.5 mg/dL (2.5-4.9); POTASSIUM 4.6 mmol/L (3.5-5.1)
[2021-06-27 08:00] VITALS: BP 113/60
[2021-06-27 08:00] LABS: CALCIUM, SERUM 9.1 mg/dL (8.5-10.1)
[2021-06-27 08:02] LABS: BASOPHILS # (AUTO) 0.1 K/uL (0.0-0.2); BASOPHILS % (AUTO) 1.3 % (0.0-2.0); EOSINOPHILS % (AUTO) 9.2 % (0.0-6.0); HEMATOCRIT 42 % (39-51); HEMOGLOBIN 14.2 g/dL (13.5-17.5); LYMPHOCYTES # (AUTO) 1.7 K/uL (0.8-4.8); MEAN CORPUSCULAR HGB CONC 34 g/dl (31.0-36.0); MEAN CORPUSCULAR VOLUME 89 fL (80-96); MONOCYTES # (AUTO) 0.5 K/uL (0.1-1.30); MONOCYTES % (AUTO) 9.1 % (2.0-12.0); NEUTROPHILS # (AUTO) 3.1 K/uL (1.8-8.9); NEUTROPHILS % (AUTO) 51.4 % (43.0-81.0); PLATELET COUNT (AUTO) 348 K/uL (150-450); RED BLOOD CELL COUNT(AUTO) 4.72 MIL/uL (4.5-6.0)
[2021-06-27] MEDS: HYDROCODONE/APAP 10/325MG TABLET PO PRN (08:39)
[2021-06-27] MEDS: PANTOPRAZOLE 40 MG TABLET.DR PO SCH (08:39)
[2021-06-27] MEDS: VANCOMYCIN 1 GM in IV D5W 250ml IV SCH ×3 (08:39→23:56)
[2021-06-27] MEDS: ASPIRIN 81 MG TAB.CHEW PO SCH (08:39)
[2021-06-27] MEDS ORDERED: SULF1TAB48 PO (10:33)
[2021-06-27] MEDS ORDERED: ASPI-1169 PO (10:33)
[2021-06-27] MEDS ORDERED: SIMV-49 PO (10:33)
[2021-06-27] MEDS ORDERED: PANT40TA2 PO (10:33)
[2021-06-27 16:00] VITALS: BP 143/76
[2021-06-27] MEDS: GABAPENTIN 300 MG CAPSULE PO SCH (16:19)
[2021-06-27] MEDS: oxyCODONE/APAP (5/325 MG) 1 UDTAB TABLET PO PRN ×3 (16:20→23:25)
--- NOTE | 2021-06-27 16:42 | NUR ---
RN NOTE NOTIFIED DR. HOLLIDAY BLOOD SUGAR HAS CONSISTENTLY BEEN BELOW 105 WITH NEW ORDER TO REMOVE BS CHECK ACHS
[2021-06-27] MEDS: MORPHINE SULFATE INJ 2 MG/ML DISP.SYRIN IV PRN (17:33)
--- NOTE | 2021-06-27 18:56 | NUR ---
MS RN CLOSING NOTES PT IS AWAKE IN BED. A/O X4. PATIENT WITH REGULAR AND UNLABORED BREATHING ON ROOM AIR, TOLERATING WELL. NO S/SX OF DISTRESS NOTED AT THIS TIME. NO COMPLAINTS OF PAIN OR DISCOMFORT AT THIS TIME. IV ACCESS MATT MIDLINE PATENT AND INTACT. SAFETY PRECAUTIONS ENFORCED WITH BED LOCKED AND AT LOWEST POSITION. CALL LIGHT WITHIN REACH AT ALL TIMES. WILL ENDORSE CONTINUITY OF CARE TO ONCOMING SHIFT.
[2021-06-27 20:00] VITALS: BP 116/81
--- NOTE | 2021-06-27 20:09 | NUR ---
MS RN OPENING NOTES RECEIVED PATIENT IN BED A/O X4 ON ROOM AIR, TOLERATING WELL. NO SIGN SOB/DISTRESS NOTED AT THIS TIME. NO COMPLAINTS OF PAIN OR DISCOMFORT AT THIS TIME. IV ACCESS MATT MIDLINE#18 SL PATENT AND INTACT. SAFETY PRECAUTIONS ENFORCED WITH BED LOCKED AND AT LOWEST POSITION. CALL LIGHT WITHIN REACH AT ALL TIMES. WILL CONTINUE TO MONITOR.
[2021-06-27] MEDS: VALACYCLOVIR HCL 500 MG TABLET PO SCH (21:59)
[2021-06-27] MEDS: SIMVASTATIN 20 MG TABLET PO SCH (22:00)
--- NOTE | 2021-06-28 00:43 | NUR ---
MS RESENDEZ NOTES DESHAWN CABALLERO GIVEN FOR 10/12 PAIN TOLERATED WELL. ALL NEEDS MET AT THIS TIME WILL CONTINUE TO MONITOR. Addendum: 06/29/21 at 0043 by CHRISTIANO BOYER RN [id number]
[2021-06-28] MEDS: MORPHINE SULFATE INJ 2 MG/ML DISP.SYRIN IV PRN ×4 (01:30→20:34)
--- NOTE | 2021-06-28 01:37 | NUR ---
RN NOTES PT COMPLAINED OF PAIN 9/10 ON LLEG.PRN MORPHINE 2MG/ML.NO SIGN A/R NOTED.
[2021-06-28] MEDS: oxyCODONE/APAP (5/325 MG) 1 UDTAB TABLET PO PRN ×3 (05:41→19:28)
--- NOTE | 2021-06-28 07:25 | NUR ---
MS RN RECEIVED PT ON BED, AWAKE,ALERT,ORIENTED X4,NOT IN ANY FORM OF DISTRESS, RESPIRATIONS EVEN AND UNLABORED,NO SOB NOTED, LUNGS ARE CLEAR,ABDOMEN SOFT,POSITIVE BOWEL SOUNDS, COMPLAINING OF PAIN, WILL MONITOR PATIENT.
[2021-06-28 07:40] LABS: CALCIUM, SERUM 8.7 mg/dL (8.5-10.1); CREATININE 0.9 mg/dL (0.6-1.3); MAGNESIUM 2.1 mg/dL (1.8-2.4); PHOSPHORUS 3.9 mg/dL (2.5-4.9); POTASSIUM 4.4 mmol/L (3.5-5.1)
[2021-06-28 07:46] LABS: BASOPHILS # (AUTO) 0.1 K/uL (0.0-0.2); BASOPHILS % (AUTO) 1.1 % (0.0-2.0); EOSINOPHILS % (AUTO) 5.8 % (0.0-6.0); HEMATOCRIT 40 % (39-51); HEMOGLOBIN 13.3 g/dL (13.5-17.5); LYMPHOCYTES % (AUTO) 34.8 % (20.0-44.0); MEAN CORPUSCULAR HGB CONC 34 g/dl (31.0-36.0); MEAN CORPUSCULAR VOLUME 89 fL (80-96); MONOCYTES # (AUTO) 0.5 K/uL (0.1-1.30); MONOCYTES % (AUTO) 9.7 % (2.0-12.0); NEUTROPHILS # (AUTO) 2.7 K/uL (1.8-8.9); NEUTROPHILS % (AUTO) 48.6 % (43.0-81.0); PLATELET COUNT (AUTO) 319 K/uL (150-450); RED BLOOD CELL COUNT(AUTO) 4.45 MIL/uL (4.5-6.0); WHITE BLOOD COUNT (AUTO) 5.6 K/uL (4.3-11.0)
[2021-06-28 08:00] VITALS: BP 134/67
[2021-06-28] MEDS: PANTOPRAZOLE 40 MG TABLET.DR PO SCH (08:04)
[2021-06-28] MEDS: VANCOMYCIN 1 GM in IV D5W 250ml IV SCH ×2 (08:07→17:04)
--- NOTE | 2021-06-28 08:50 | NUR ---
ms rn due meds given,tolerated well.
[2021-06-28] MEDS: GABAPENTIN 300 MG CAPSULE PO SCH ×3 (09:18→17:04)
[2021-06-28] MEDS: ASPIRIN 81 MG TAB.CHEW PO SCH (09:19)
[2021-06-28] MEDS: VALACYCLOVIR HCL 500 MG TABLET PO SCH ×2 (09:19→21:15)
[2021-06-28] MEDS ORDERED: GABA300C PO (10:58)
--- NOTE | 2021-06-28 11:00 | NUR ---
ms rn patient on bed,no distress noted.
--- NOTE | 2021-06-28 11:50 | NUR ---
ms rn dressing change to left lower leg,all needs attended.
[2021-06-28 16:00] VITALS: BP 162/91
--- NOTE | 2021-06-28 18:35 | NUR ---
ms rn on bed, no distress noted.
--- NOTE | 2021-06-28 19:29 | NUR ---
MS RN OPENING NOTES RECEIVED PATIENT IN BED A/O X4 ON ROOM AIR, TOLERATING WELL. NO SIGN SOB/DISTRESS NOTED AT THIS TIME. PT COMPLAINING OF PAIN ON HIS CALF 5/10 PRN PERCOCET GIVEN AND TOLERATED WELL.. IV ACCESS MATT MIDLINE#18 SL PATENT AND INTACT. SAFETY PRECAUTIONS ENFORCED WITH BED LOCKED AND AT LOWEST POSITION. CALL LIGHT WITHIN REACH AT ALL TIMES. WILL CONTINUE TO MONITOR.
[2021-06-28 20:00] VITALS: BP 146/67
[2021-06-28] MEDS ORDERED: NA PHOS,M-B/NA PHOS,DI-BA 1 EA ENEMA RC PRN (21:00)
[2021-06-28] MEDS: SIMVASTATIN 20 MG TABLET PO SCH (21:33)
[2021-06-29] MEDS: VANCOMYCIN 1 GM in IV D5W 250ml IV SCH ×3 (00:04→16:51)
[2021-06-29] MEDS: oxyCODONE/APAP (5/325 MG) 1 UDTAB TABLET PO PRN ×4 (00:41→20:24)
--- NOTE | 2021-06-29 00:42 | NUR ---
MS RN NOTES PRN PERCOCET GIVEN FOR PAIN 10/12 TOLERATED WELL. ALL NEEDS MET. WILL CONTINUE TO MONITOR.
[2021-06-29] MEDS: MORPHINE SULFATE INJ 2 MG/ML DISP.SYRIN IV PRN ×3 (03:52→16:51)
--- NOTE | 2021-06-29 03:56 | NUR ---
MS RN NOTES PRN MORPHINE GIVEN FOR PAIN 10/12 TOLERATED WELL. ALL NEEDS MET AT THIS TIME. WILL CONTINUE TO MONITOR.
--- NOTE | 2021-06-29 06:40 | NUR ---
MS RN CLOSING NOTES PATIENT IN BED A/O X4 ON ROOM AIR, TOLERATING WELL. NO SIGN SOB/DISTRESS NOTED AT THIS TIME. PT COMPLAINING OF PAIN ON HIS CALF 5/10 PRN PERCOCET AND MORPHINE GIVEN AND TOLERATED WELL. ALL NEEDS ATTENDED TO AND ANTICIPATED AT ALL TIMES IV ACCESS MATT MIDLINE#18 SL PATENT AND INTACT. SAFETY PRECAUTIONS ENFORCED WITH BED LOCKED AND AT LOWEST POSITION. CALL LIGHT WITHIN REACH AT ALL TIMES. WILL ENDORSE CRAE TO DAY SHIFT NURSE.
[2021-06-29 06:54] LABS: CALCIUM, SERUM 8.9 mg/dL (8.5-10.1); CREATININE 0.9 mg/dL (0.6-1.3); POTASSIUM 4.3 mmol/L (3.5-5.1)
[2021-06-29 07:25] LABS: BASOPHILS # (AUTO) 0.1 K/uL (0.0-0.2); EOSINOPHILS % (AUTO) 5.5 % (0.0-6.0); HEMATOCRIT 41 % (39-51); HEMOGLOBIN 13.8 g/dL (13.5-17.5); LYMPHOCYTES # (AUTO) 2.4 K/uL (0.8-4.8); LYMPHOCYTES % (AUTO) 35.5 % (20.0-44.0); MEAN CORPUSCULAR HGB CONC 33 g/dl (31.0-36.0); MEAN CORPUSCULAR VOLUME 90 fL (80-96); MONOCYTES # (AUTO) 0.6 K/uL (0.1-1.30); MONOCYTES % (AUTO) 8.5 % (2.0-12.0); NEUTROPHILS # (AUTO) 3.4 K/uL (1.8-8.9); NEUTROPHILS % (AUTO) 49.5 % (43.0-81.0); PLATELET COUNT (AUTO) 314 K/uL (150-450); RED BLOOD CELL COUNT(AUTO) 4.59 MIL/uL (4.5-6.0); WHITE BLOOD COUNT (AUTO) 6.9 K/uL (4.3-11.0)
--- NOTE | 2021-06-29 07:45 | NUR ---
RN OPENING NOTE PATIENT IN BED RESTING, AWAKE, A/O X4. NO S/S OF PAIN NOTED AT THIS TIME. ON ROOM AIR, NO DISTRESS OR SHORTNESS OF BREATH NOTED. IV ACCESS MATT MIDLINE, INTACT, PATENT AND FLUSHING WELL. FALL AND SAFETY MEASURES IN PLACE, BED ALARM ON, BED IN LOW AND LOCK POSITION, CALL LIGHT AND TABLE WITHIN EASY REACH, SIDE RAILS UP X2. WILL CONTINUE TO MONITOR.
[2021-06-29 08:00] VITALS: BP 128/88
[2021-06-29] MEDS: GABAPENTIN 300 MG CAPSULE PO SCH ×3 (08:24→16:51)
[2021-06-29] MEDS: PANTOPRAZOLE 40 MG TABLET.DR PO SCH (08:24)
[2021-06-29] MEDS: VALACYCLOVIR HCL 500 MG TABLET PO SCH (08:25)
[2021-06-29] MEDS: ASPIRIN 81 MG TAB.CHEW PO SCH (08:25)
[2021-06-29] MEDS ORDERED: VALA500T PO (12:32)
--- NOTE | 2021-06-29 15:43 | NUR ---
RN NOTE PATIENT GOT A NEW WALKER, IS AT BEDSIDE.
[2021-06-29 16:00] VITALS: BP 143/86
--- NOTE | 2021-06-29 18:56 | NUR ---
RN CLOSING NOTE PATIENT IN BED RESTING, AWAKE, A/O X4. NO S/S OF PAIN NOTED AT THIS TIME. ON ROOM AIR, NO DISTRESS OR SHORTNESS OF BREATH NOTED. IV ACCESS MATT MIDLINE, INTACT, PATENT AND FLUSHING WELL. FALL AND SAFETY MEASURES IN PLACE, BED ALARM ON, BED IN LOW AND LOCK POSITION, CALL LIGHT AND TABLE WITHIN EASY REACH, SIDE RAILS UP X2. WILL ENDORSE TO WOOD GRINDER.
--- NOTE | 2021-06-29 19:00 | NUR ---
MS RN NOTES RECEIVED IN ROOM A/O X4.NO SOB,C/O MILD PAIN ON ON LEFT LOWER LEG,WILL MEDICATE.WITH DISCHARGE ORDER AWAITING FOR BLOOD CULTURE RESULT,IF OK AND NORMAL.AMBULATE WITH STEADY GAIT,CALL LIGHT IN REACH,NEEDS ANTICIPATED.
--- NOTE | 2021-06-29 19:30 | NUR ---
MS RN NOTES BLOOD CULTURE RESULT, NO GROWTH IN 24 HOURS,CHARGE NURSE MADE AWARE,PATIENT MADE MADE AWARE OF DISCHARGE,WILLING TO GO HOME.
[2021-06-29 20:00] VITALS: BP 167/97
--- NOTE | 2021-06-29 20:24 | NUR ---
MS RN NOTES HAVING MODERATE PAIN 5/10 ON PAIN SCALE,PERCOCET 5/325 MG,1 TAB PO GIVEN PER PATIENT REQUEST.
--- NOTE | 2021-06-29 20:45 | NUR ---
MS RN NOTES DENIES DIZZINESS,ABLE TO WALK WITH STEADY GAIT,SALINE LOCK REMOVED,DRESSING TO LEFT LOWER LEG INTACT AND PATENT,DRESSING CHANGED DONE BY DAY NURSE LATE.NOT IN ANY FORM OF DISTRESS.STABLE.PRESCRIPTION GIVEN FOR PAIN MANAGEMENT.
== END 2021-06-29 20:45 | disposition home or self-care (01) | DRG 951 ==
LOC: ER 20:58 → TELE 22:50 → MED 06-21 13:18
PROVIDERS: ADMIT Nurse Practitioner Acute Care; ATTEND Student in an Organized Health Care Education/Training Program
PROC: 0K9T0ZZ Drainage of Left Lower Leg Muscle, Open Approach (ICD-10-PCS; principal; 2021-06-23)
PROC: 05H933Z Insertion of Infusion Device into Right Brachial Vein, Percutaneous Approach (ICD-10-PCS; 2021-06-26)
DX: G45.9 Transient cerebral ischemic attack, unspecified (principal); D68.59 Other primary thrombophilia; L02.416 Cutaneous abscess of left lower limb; G81.94 Hemiplegia, unspecified affecting left nondominant side; L03.116 Cellulitis of left lower limb; G40.909 Epilepsy, unspecified, not intractable, without status epilepticus; I10 Essential (primary) hypertension; J45.909 Unspecified asthma, uncomplicated; W57.XXXA Bitten or stung by nonvenomous insect and other nonvenomous arthropods, initial encounter; Y92.9 Unspecified place or not applicable; L02.419 Cutaneous abscess of limb, unspecified; R29.703 NIHSS score 3; Z20.822 Contact with and (suspected) exposure to COVID-19; Z79.899 Other long term (current) drug therapy; Z88.8 Allergy status to other drugs, medicaments and biological substances; M47.816 Spondylosis without myelopathy or radiculopathy, lumbar region; A49.02 Methicillin resistant Staphylococcus aureus infection, unspecified site; F17.210 Nicotine dependence, cigarettes, uncomplicated; E87.6 Hypokalemia; B00.1 Herpesviral vesicular dermatitis; G62.9 Polyneuropathy, unspecified; G89.4 Chronic pain syndrome; Z87.820 Personal history of traumatic brain injury
CPT/HCPCS: 36415; 70450-TC; 70496-TC; 70498-TC; 70551-TC; 71045-TC; 80048-TC; 80053-TC; 80061-TC; 80202-TC; 82962-TC; 83605-TC; 83735-TC; 83880; 84100-TC; 84443-TC; 84484-TC; 85025-TC; 85652-TC; 85730-TC; 87040-TC; 87070-TC; 87081-TC; 92507-TC; 92521; 92526; 92611-TC; 93307-TC; 93880-TC; 97110-TC; 97116-TC; 97530-TC; 97535-TC; A6253; A6403; A6407; C1750; C9803; G0378; J0692; J1815; J1885; J2270; J2405; J3370; J3490; J7050; J7060; Q9967